=== PATIENT | male | born 1940 | race Hispanic/Latino ===

== ENCOUNTER 2017-12-20 15:02 | Inpatient (IN) | payer MEDICARE ==
[~2017-12-20] VITALS: Ht 157.5 cm; Wt 60.2 kg
[~2017-12-20 15:02] MED LIST: ALBUMIN (HUMAN) 25% 50 ML IV ONE; AMINOCAPROIC ACID 250 MG/ML 20 ML VIAL IV ONE; CALCIUM CHLORIDE 100 MG/ML 10 ML SYG IVP ONE; HEPARIN SODIUM 1000UNIT/ML 10ML VIAL IV ONE; MANNITOL 25% 50ML VIAL IV ONE; SODIUM BICARB 8.4% 50ML SYRINGE IVP ONE
[2017-12-20 15:05] VITALS: BP 147/74
[2017-12-20] MEDS ORDERED: IBUP100T53 PO (16:00)
[2017-12-20 16:30] VITALS: BP 121/65
[2017-12-20] MEDS ORDERED: CEFUROXIME 1.5GM+NS 100ML 100 ML IV SCH (17:00)
[2017-12-20] MEDS ORDERED: PHARMACY COMMUNICATION MISC SCH (17:15)
[2017-12-20 17:20] LABS: BASOPHILS % (AUTO) 0.5 % (0.0-5.0); HEMATOCRIT 26.5 % (42-54); MEAN CORPUSCULAR HGB CONC 35.5 g/dL (32.0-36.0); MONOCYTES % (AUTO) 7.8 % (3.0-13.0); NEUTROPHILS % (AUTO) 73.7 % (40.0-77.0); PLATELET COUNT (AUTO) 259 K/uL (130-400); RED BLOOD CELL COUNT(AUTO) 2.85 MIL/uL (4.50-6.20); WHITE BLOOD COUNT (AUTO) 11.5 K/uL (4.8-10.8)
[2017-12-20 17:32] LABS: INR 1.04 (0.85-1.15); PROTHROMBIN TIME 10.9 SEC (9.6-11.6)
[2017-12-20 17:33] LABS: ALBUMIN 2.9 g/dL (3.5-5.0); BILIRUBIN,TOTAL 0.3 mg/dL (0.2-1.0); CREATININE 1.5 mg/dL (0.5-1.5); POTASSIUM 4.7 mmol/L (3.5-5.1)
[2017-12-20] MEDS ORDERED: CEFUROXIME SODIUM 1.5 GM VIAL IVP SCH (18:00)
[2017-12-20] MEDS ORDERED: HEPARIN 25000 UNITS/250 ML D5W 250 ML IV PRN (19:30)
[2017-12-20 19:57] VITALS: BP 115/59
[2017-12-20 23:54] VITALS: BP 121/63
[2017-12-21] VITALS (16 sets, daily range): BP systolic 91–161; BP diastolic 40–64
[2017-12-21] MEDS ORDERED: IPRATROPIUM/ALBUTEROL SULFATE 3 ML SOLUTION IH PRN (02:30)
[2017-12-21] MEDS ORDERED: HYDRALAZINE HCL 20 MG/ML VIAL IV PRN (02:30)
[2017-12-21] MEDS ORDERED: ONDANSETRON HCL 4 MG/2 ML VIAL IVP PRN (02:30)
[2017-12-21] MEDS ORDERED: GLUCAGON 1MG KIT 1 MG ML IM PRN ×2 (02:30→13:30)
[2017-12-21] MEDS ORDERED: POTASSIUM CHLORIDE 10% ELIXIR 20 MEQ/15 ML UDCUP PO PRN (02:30)
[2017-12-21] MEDS ORDERED: POTASSIUM CHLORIDE 20 MEQ ERTAB PO PRN (02:30)
[2017-12-21] MEDS ORDERED: POTASSIUM CHLORIDE 20MEQ/100ML 100 ML IV PRN (02:30)
[2017-12-21] MEDS ORDERED: DEXTROSE 50%-WATER 50 ML DISP.SYRIN IV PRN ×2 (02:30→13:30)
[2017-12-21] MEDS ORDERED: ACETAMINOPHEN 325 MG TAB PO PRN ×2 (02:30→13:30)
[2017-12-21] MEDS ORDERED: LIDOCAINE HCL-MPF 1% 2ML VIAL IVP PRN (02:30)
[2017-12-21] MEDS ORDERED: LACTULOSE 20 GM/30 ML UDCUP PO PRN (02:30)
[2017-12-21 04:54] LABS: CREATININE 1.6 mg/dL (0.5-1.5); POTASSIUM 3.5 mmol/L (3.5-5.1)
[2017-12-21 04:57] LABS: HEMOGLOBIN A1C 5.7 % (4.0-6.0)
[2017-12-21 06:14] LABS: INR 1.01 (0.85-1.15); PARTIAL THROMBOPLASTIN TIME 30.4 SEC (26.3-35.5); PROTHROMBIN TIME 10.6 SEC (9.6-11.6)
[2017-12-21] MEDS: INSULIN HUMULIN R 100 UNIT/ML 3ML SQ SCH ×2 (07:30→11:30)
[2017-12-21] MEDS ORDERED: CEFUROXIME SODIUM 1.5 GM VIAL IVP ONE (08:00)
[2017-12-21] MEDS ORDERED: WATER FOR INJECTION,STERILE 20 ML VIAL IJ ONE (08:00)
[2017-12-21] MEDS ORDERED: SODIUM CHLORIDE 0.9% 1000ML 1,000 ML IV ONE (08:42)
[2017-12-21] MEDS ORDERED: FAMOTIDINE 20MG TAB 20 MG TAB PO SCH (09:00)
[2017-12-21] MEDS ORDERED: EPINEPHRINE 1 MG/ML 30ML VIAL IJ ONE (09:21)
[2017-12-21] MEDS ORDERED: NITROGLYCERIN 50 MG/D5% WATER 1 BOT ONE (09:27)
[2017-12-21] MEDS ORDERED: NOREPINEPHRINE BITARTRATE 1 MG/1 ML ML IV ONE ×2 (09:42→10:24)
[2017-12-21] MEDS ORDERED: PROPOFOL 10 MG/ML 20ML VIAL IV ONE (10:24)
[2017-12-21] MEDS ORDERED: HEPARIN SODIUM 1000UNIT/ML 10ML VIAL ONE (10:24)
[2017-12-21] MEDS ORDERED: ROCURONIUM BROMIDE 10MG/1ML 5ML VL ONE (10:24)
[2017-12-21] MEDS ORDERED: AMIODARONE HCL 900MG/18ML IV ONE (10:24)
[2017-12-21] MEDS ORDERED: PROTAMINE SULFATE 10 MG/ML 25ML VIAL IV ONE (10:24)
[2017-12-21] MEDS ORDERED: FENTANYL CITRATE PF 50 MCG/1 ML 20ML VIAL IJ ONE (10:24)
[2017-12-21] MEDS ORDERED: MIDAZOLAM HCL 1 MG/ML 5ML VIAL ONE (10:24)
[2017-12-21] MEDS ORDERED: ESMOLOL HCL 10 MG/ML 10 ML VIAL ONE (10:24)
[2017-12-21] MEDS ORDERED: LIDOCAINE PF 2% 5ML ABBOJECT ONE (10:24)
[2017-12-21] MEDS ORDERED: MILRINONE-D5W 20 MG/100 ML 100 ML IV ONE (10:24)
[2017-12-21] MEDS ORDERED: EPINEPHRINE 1 MG/ML AMPULE ONE (10:24)
[2017-12-21] MEDS ORDERED: AMINOCAPROIC ACID 250 MG/ML 20 ML VIAL IV ONE (10:24)
[2017-12-21] MEDS ORDERED: GLYCOPYRROLATE 0.2 MG/ML 5 ML VIAL ONE (10:24)
[2017-12-21] MEDS ORDERED: DELNIDO FORMULA 1 BAG IV ONE (10:32)
[2017-12-21] MEDS ORDERED: THROMBIN-JMI 5000 UNIT/VIAL TP ONE (10:49)
[2017-12-21 10:59] LABS: ABG BASE EXCESS -0.1 mmol/L (-2.0-3.0); ABG HCO3 24.5 mmol/L (21.0-28.0); ABG OXYGEN SATURATION 99.1 % (95.0-99.0); ABG PCO2 40 mmHg (35-48)
[2017-12-21] MEDS ORDERED: METHYLPREDNISOLONE SOD SUCC 1,000 MG/8 ML ML IV ONE (11:18)
[2017-12-21] MEDS: AMBU PUMP 1 EACH EACH MISC SCH ×2 (12:00→12:55)
[2017-12-21 12:12] LABS: ABG HCO3 22.5 mmol/L (21.0-28.0); ABG OXYGEN SATURATION 98.9 % (95.0-99.0); ABG PCO2 37 mmHg (35-48)
[2017-12-21 12:51] LABS: ABG HCO3 20.1 mmol/L (21.0-28.0); ABG OXYGEN SATURATION 98.8 % (95.0-99.0); ABG PCO2 33 mmHg (35-48)
[2017-12-21 13:16] LABS: ABG BASE EXCESS -4.6 mmol/L (-2.0-3.0); ABG HCO3 20.4 mmol/L (21.0-28.0); ABG OXYGEN SATURATION 98.8 % (95.0-99.0); ABG PCO2 38 mmHg (35-48)
[2017-12-21] MEDS ORDERED: SODIUM CHLORIDE 0.9% 500ML 500 ML IV SCH (13:28)
[2017-12-21] MEDS ORDERED: MORPHINE SULFATE 4 MG/1ML SYG IV PRN (13:30)
[2017-12-21] MEDS ORDERED: ALBUMIN (HUMAN) 5% 250 ML IV PRN (13:30)
[2017-12-21] MEDS ORDERED: NOREPINEPHRINE 4MG/NS 250ML 250 ML IV PRN (13:30)
[2017-12-21] MEDS ORDERED: SODIUM CHLORIDE 0.9% 250 ML IV PRN (13:30)
[2017-12-21] MEDS ORDERED: PROPOFOL 1000 MG/100 ML 100 ML IV PRN (13:30)
[2017-12-21] MEDS ORDERED: HYDROCODONE/ACETAMINOPHEN 5/325 MG TAB PO PRN ×2 (13:30)
[2017-12-21] MEDS ORDERED: MAGNESIUM 2GM PREMIX 50ML 50 ML IV PRN (13:30)
[2017-12-21] MEDS ORDERED: NITROGLYCERIN 50 MG/D5% WATER 250 BOT IV SCH (13:30)
[2017-12-21] MEDS ORDERED: AMINOCAPROIC ACID 15,000 MG in SODIUM CHLORIDE 0.9% 250 ML IV SCH (13:30)
[2017-12-21] MEDS ORDERED: SODIUM BICARB 8.4% 50ML SYRINGE IV PRN (13:30)
[2017-12-21] MEDS ORDERED: ACETAMINOPHEN 650 MG SUPPOSITORY RC PRN (13:30)
[2017-12-21] MEDS ORDERED: EPINEPHRINE 2 MG in SODIUM CHLORIDE 0.9% 250 ML IV PRN (13:30)
[2017-12-21] MEDS ORDERED: SODIUM CHLORIDE 0.9% 1000ML 1,000 ML IV SCH (13:30)
[2017-12-21] MEDS ORDERED: POTASSIUM PHOS 15 mMOL+NS250ML 250 ML IV PRN (13:30)
[2017-12-21] MEDS ORDERED: SODIUM CHLORIDE 0.9% 10 ML VIAL IVP PRN (13:30)
[2017-12-21] MEDS ORDERED: CALCIUM GLUCONATE 1 GM in SODIUM CHLORIDE 0.9% 50 ML IV PRN (13:30)
[2017-12-21] MEDS ORDERED: NICARDIPINE HCL 100 MG in SODIUM CHLORIDE 0.9% 100 ML IV PRN (13:30)
[2017-12-21] MEDS ORDERED: MORPHINE SULFATE 2 MG/ML 1ML SYG IV PRN (13:30)
[2017-12-21 13:48] LABS: ABG BASE EXCESS -6.9 mmol/L (-2.0-3.0); ABG HCO3 20.2 mmol/L (21.0-28.0); ABG OXYGEN SATURATION 98.7 % (95.0-99.0); ABG PCO2 48 mmHg (35-48)
[2017-12-21] MEDS ORDERED: ROPIVACAINE 0.2% 2MG/ML 100ML VIAL IJ ONE (14:00)
[2017-12-21] MEDS: INSULIN REGULAR, HUMAN 3ML 100 UNIT in SODIUM CHLORIDE 0.9% 99 ML IV SCH ×2 (14:08)
[2017-12-21] MEDS ORDERED: DESMOPRESSIN ACETATE 4 MCG/ML IJ ONE (14:57)
[2017-12-21 15:16] LABS: ABG BASE EXCESS -2.5 mmol/L (-2.0-3.0); ABG OXYGEN SATURATION 98.6 % (95.0-99.0); ABG PCO2 49 mmHg (35-48)
[2017-12-21] MEDS ORDERED: MORPHINE SULFATE 10 MG/ML 1ML SYG ONE (16:03)
[2017-12-21 17:02] LABS: ABG BASE EXCESS -2.9 mmol/L (-2.0-3.0); ABG OXYGEN SATURATION 98.7 % (95.0-99.0); ABG PCO2 45 mmHg (35-48)
[2017-12-21 17:07] LABS: HEMATOCRIT 28.4 % (42-54); MEAN CORPUSCULAR HEMOGLOBIN 29.6 pg (27.0-33.0); MEAN CORPUSCULAR HGB CONC 33.9 g/dL (32.0-36.0); MEAN CORPUSCULAR VOLUME 87.3 fL (79-99); PLATELET COUNT (AUTO) 144 K/uL (130-400); RED BLOOD CELL COUNT(AUTO) 3.26 MIL/uL (4.50-6.20); RED CELL DISTRIBUTION WIDTH 17.1 % (11.0-15.5)
[2017-12-21] MEDS ORDERED: SODIUM BICARB 50MEQ 50ML VIAL ONE ×2 (17:09→21:37)
[2017-12-21 17:11] LABS: WHITE BLOOD COUNT (AUTO) 30.2 K/uL (4.8-10.8)
[2017-12-21] MEDS: POTASSIUM CHLORIDE 20MEQ/100ML 100 ML IV PRN ×3 (17:11→21:30)
[2017-12-21 17:17] LABS: CREATININE 1.6 mg/dL (0.5-1.5); MAGNESIUM 2.1 mg/dL (1.80-2.40); PHOSPHORUS 2.9 mg/dL (2.5-4.9)
[2017-12-21 17:25] LABS: BAND NEUTROPHILS % (MANUAL) 2 % (0-2); LYMPHOCYTES % (MANUAL) 6 % (22-44); MONOCYTES % (MANUAL) 5 % (2-9); PLATELET MORPHOLOGY COMMENT ADEQUATE; SEGMENTED NEUTROPHILS % 87 % (40-70)
[2017-12-21] MEDS: CEFUROXIME SODIUM 1.5 GM VIAL IVP SCH (20:35)
[2017-12-21 21:05] LABS: ABG BASE EXCESS -2.3 mmol/L (-2.0-3.0); ABG OXYGEN SATURATION 97.6 % (95.0-99.0); ABG PCO2 41 mmHg (35-48)
[2017-12-21] MEDS ORDERED: CEFUROXIME 1.5GM+NS 100ML 100 ML IV SCH (21:30)
[2017-12-21] MEDS ORDERED: WATER FOR INJECTION,STERILE 20 ML VIAL IJ SCH (21:30)
[2017-12-21] MEDS: SODIUM BICARB 50MEQ 50ML VIAL IV PRN ×2 (22:06→23:47)
[2017-12-21 23:38] LABS: ABG BASE EXCESS -0.7 mmol/L (-2.0-3.0); ABG HCO3 24.1 mmol/L (21.0-28.0); ABG OXYGEN SATURATION 98.1 % (95.0-99.0); ABG PCO2 40 mmHg (35-48)
[2017-12-22] VITALS (24 sets, daily range): BP systolic 93–149; BP diastolic 32–60
[2017-12-22 00:53] LABS: ABG BASE EXCESS 0.7 mmol/L (-2.0-3.0); ABG HCO3 27.1 mmol/L (21.0-28.0); ABG OXYGEN SATURATION 96.5 % (95.0-99.0); ABG PCO2 52 mmHg (35-48)
[2017-12-22] MEDS: INSULIN REGULAR, HUMAN 3ML 100 UNIT in SODIUM CHLORIDE 0.9% 99 ML IV SCH ×4 (02:00→08:17)
[2017-12-22 03:55] LABS: HEMATOCRIT 24.8 % (42-54); MEAN CORPUSCULAR HEMOGLOBIN 30.9 pg (27.0-33.0); MEAN CORPUSCULAR HGB CONC 35.3 g/dL (32.0-36.0); MEAN CORPUSCULAR VOLUME 87.6 fL (79-99); PLATELET COUNT (AUTO) 117 K/uL (130-400); RED BLOOD CELL COUNT(AUTO) 2.83 MIL/uL (4.50-6.20); RED CELL DISTRIBUTION WIDTH 18.1 % (11.0-15.5); WHITE BLOOD COUNT (AUTO) 19.9 K/uL (4.8-10.8)
[2017-12-22 04:06] LABS: CREATININE 1.9 mg/dL (0.5-1.5); MAGNESIUM 1.9 mg/dL (1.80-2.40); PHOSPHORUS 4.7 mg/dL (2.5-4.9)
[2017-12-22 04:19] LABS: B-TYPE NATRIURETIC PEPTIDE 1950 pg/mL (0-100)
[2017-12-22 04:21] LABS: ABG BASE EXCESS -0.4 mmol/L (-2.0-3.0); ABG OXYGEN SATURATION 96.4 % (95.0-99.0); ABG PCO2 38 mmHg (35-48)
[2017-12-22] MEDS: ONDANSETRON HCL 4 MG/2 ML VIAL IV PRN ×2 (05:02→11:26)
[2017-12-22 05:07] LABS: ABG BASE EXCESS 0.7 mmol/L (-2.0-3.0); ABG HCO3 25.3 mmol/L (21.0-28.0); ABG OXYGEN SATURATION 97.5 % (95.0-99.0); ABG PCO2 40 mmHg (35-48)
[2017-12-22 06:14] LABS: ABG BASE EXCESS -2.1 mmol/L (-2.0-3.0); ABG HCO3 22.9 mmol/L (21.0-28.0); ABG OXYGEN SATURATION 98.1 % (95.0-99.0); ABG PCO2 40 mmHg (35-48)
[2017-12-22] MEDS: CEFUROXIME SODIUM 1.5 GM VIAL IVP SCH ×2 (08:42→21:11)
[2017-12-22] MEDS: PANTOPRAZOLE 40 MG/VIAL IV SCH (08:43)
[2017-12-22] MEDS: ALBUMIN (HUMAN) 5% 250 ML IV SCH ×2 (09:14→10:03)
[2017-12-22] MEDS ORDERED: EPINEPHRINE 8 MG in SODIUM CHLORIDE 0.9% 250 ML IV PRN (11:30)
[2017-12-22 13:39] LABS: CREATININE 1.9 mg/dL (0.5-1.5); MAGNESIUM 2.6 mg/dL (1.80-2.40); POTASSIUM 4.5 mmol/L (3.5-5.1)
[2017-12-22 13:44] LABS: APPEARANCE,URINE Cloudy (CLEAR); BILIRUBIN,URINE Negative (NEGATIVE); COLOR,URINE Yellow (YELLOW); GLUCOSE, URINE (UA) Negative (NEGATIVE); KETONES,URINE Negative (NEGATIVE); LEUKOCYTE ESTERASE ,URINE Large (NEGATIVE); NITRATE,URINE Negative (NEGATIVE); OCCULT BLOOD,URINE Large (NEGATIVE); PROTEIN,URINE Trace (NEGATIVE); UROBILINOGEN,URINE 0.2 mg/dL (0.2-1.0)
[2017-12-22 14:02] LABS: BACTERIA,URINE Many /HPF (None Seen); COARSE GRANULAR CASTS,URINE 0-2 /LPF (None Seen); WBC,URINE TNTC /HPF (0-1)
[2017-12-23] VITALS (24 sets, daily range): BP systolic 91–140; BP diastolic 32–66
[2017-12-23 04:28] LABS: ABG BASE EXCESS 5.5 mmol/L (-2.0-3.0); ABG OXYGEN SATURATION 97.9 % (95.0-99.0); ABG PCO2 52 mmHg (35-48)
[2017-12-23 04:39] LABS: LYMPHOCYTES % (AUTO) 3.8 % (21.0-51.0); MEAN CORPUSCULAR HEMOGLOBIN 31.9 pg (27.0-33.0); MEAN CORPUSCULAR HGB CONC 34.8 g/dL (32.0-36.0); MEAN CORPUSCULAR VOLUME 91.7 fL (79-99); MONOCYTES % (AUTO) 7.4 % (3.0-13.0); NEUTROPHILS % (AUTO) 88.8 % (40.0-77.0); PLATELET COUNT (AUTO) 55 K/uL (130-400); RED BLOOD CELL COUNT(AUTO) 2.18 MIL/uL (4.50-6.20); RED CELL DISTRIBUTION WIDTH 17.8 % (11.0-15.5); WHITE BLOOD COUNT (AUTO) 21.4 K/uL (4.8-10.8)
[2017-12-23 04:43] LABS: INR 1.04 (0.85-1.15); PROTHROMBIN TIME 10.9 SEC (9.6-11.6)
[2017-12-23 04:51] LABS: B-TYPE NATRIURETIC PEPTIDE 915 pg/mL (0-100)
[2017-12-23 05:10] LABS: CREATININE 1.5 mg/dL (0.5-1.5); MAGNESIUM 2.6 mg/dL (1.80-2.40); PHOSPHORUS 4.9 mg/dL (2.5-4.9); POTASSIUM 4.8 mmol/L (3.5-5.1)
[2017-12-23] MEDS ORDERED: LEVOFLOXACIN 500 MG/D5W 100 ML 100 ML IV SCH (09:00)
[2017-12-23] MEDS: ASPIRIN 81MG TAB.CHEW PO SCH (09:08)
[2017-12-23] MEDS: TICAGRELOR 90 MG TABLET PO SCH (09:08)
[2017-12-23] MEDS: PANTOPRAZOLE 40 MG/VIAL IV SCH (09:09)
[2017-12-23] MEDS: POTASSIUM CHLORIDE 10 MEQ/TAB.SA PO SCH (09:09)
[2017-12-23] MEDS: FUROSEMIDE 10 MG/ML 2ML VIAL IV SCH (09:32)
[2017-12-23] MEDS: 1/2 NORMAL SALINE 1,000 ML IV SCH ×2 (09:32→20:27)
[2017-12-23] MEDS ORDERED: METHYLPREDNISOLONE SOD SUCC 40MG/ML 1ML IVP SCH (10:00)
[2017-12-23] MEDS: INSULIN HUMULIN R 100 UNIT/ML 3ML SQ SCH ×3 (11:30→20:23)
[2017-12-23] MEDS: BUDESONIDE 0.5 MG/2 ML INH IH SCH (19:30)
[2017-12-23] MEDS: ATORVASTATIN CALCIUM 20 MG TABLET PO SCH (20:23)
[2017-12-24] VITALS (24 sets, daily range): BP systolic 95–163; BP diastolic 38–87
[2017-12-24 04:36] LABS: HEMATOCRIT 23.1 % (42-54); MEAN CORPUSCULAR HEMOGLOBIN 31.1 pg (27.0-33.0); MEAN CORPUSCULAR HGB CONC 34.8 g/dL (32.0-36.0); MEAN CORPUSCULAR VOLUME 89.4 fL (79-99); NUCLEATED RED BLOOD CELLS 0.3 % (0.0-0.19); PLATELET COUNT (AUTO) 54 K/uL (130-400); RED BLOOD CELL COUNT(AUTO) 2.58 MIL/uL (4.50-6.20); RED CELL DISTRIBUTION WIDTH 17.2 % (11.0-15.5); WHITE BLOOD COUNT (AUTO) 14.6 K/uL (4.8-10.8)
[2017-12-24 04:45] LABS: CREATININE 1.3 mg/dL (0.5-1.5); MAGNESIUM 2.4 mg/dL (1.80-2.40); PHOSPHORUS 3.2 mg/dL (2.5-4.9); POTASSIUM 4.5 mmol/L (3.5-5.1)
[2017-12-24] MEDS: BUDESONIDE 0.5 MG/2 ML INH IH SCH ×2 (06:39→16:26)
[2017-12-24] MEDS: INSULIN HUMULIN R 100 UNIT/ML 3ML SQ SCH ×4 (07:18→20:56)
[2017-12-24] MEDS ORDERED: LEVOFLOXACIN 500 MG TABLET PO SCH (09:00)
[2017-12-24] MEDS: FUROSEMIDE 10 MG/ML 2ML VIAL IV SCH (10:54)
[2017-12-24] MEDS: POTASSIUM CHLORIDE 10 MEQ/TAB.SA PO SCH (10:54)
[2017-12-24] MEDS: TICAGRELOR 90 MG TABLET PO SCH (10:54)
[2017-12-24] MEDS: ASPIRIN 81MG TAB.CHEW PO SCH (10:54)
[2017-12-24] MEDS ORDERED: DOBUTAMINE 250MG/D5 250ML 250 ML IV SCH (11:04)
[2017-12-24] MEDS: METHYLPREDNISOLONE SOD SUCC 40MG/ML 1ML IVP SCH ×2 (12:04→18:27)
[2017-12-24] MEDS: PANTOPRAZOLE 40 MG/VIAL IV SCH (12:24)
[2017-12-24] MEDS: IPRATROPIUM/ALBUTEROL SULFATE 3 ML SOLUTION IH PRN (16:26)
[2017-12-24] MEDS: AMOXICILLIN/POTASSIUM CLAV 875-125 TABLET PO SCH (20:56)
[2017-12-24] MEDS: ATORVASTATIN CALCIUM 20 MG TABLET PO SCH (20:56)
[2017-12-25] VITALS (25 sets, daily range): BP systolic 104–171; BP diastolic 46–77
[2017-12-25] MEDS: IPRATROPIUM/ALBUTEROL SULFATE 3 ML SOLUTION IH PRN (00:06)
[2017-12-25] MEDS: METHYLPREDNISOLONE SOD SUCC 40MG/ML 1ML IVP SCH ×3 (02:52→19:34)
[2017-12-25 05:09] LABS: HEMATOCRIT 25.5 % (42-54); MEAN CORPUSCULAR HEMOGLOBIN 30.4 pg (27.0-33.0); MEAN CORPUSCULAR HGB CONC 34.1 g/dL (32.0-36.0); MEAN CORPUSCULAR VOLUME 88.9 fL (79-99); PLATELET COUNT (AUTO) 65 K/uL (130-400); RED BLOOD CELL COUNT(AUTO) 2.87 MIL/uL (4.50-6.20); RED CELL DISTRIBUTION WIDTH 16.5 % (11.0-15.5); WHITE BLOOD COUNT (AUTO) 14.4 K/uL (4.8-10.8)
[2017-12-25 05:17] LABS: B-TYPE NATRIURETIC PEPTIDE 824 pg/mL (0-100)
[2017-12-25 05:18] LABS: INR 1.01 (0.85-1.15); PROTHROMBIN TIME 10.6 SEC (9.6-11.6)
[2017-12-25 05:24] LABS: CREATININE 1.1 mg/dL (0.5-1.5)
[2017-12-25] MEDS: INSULIN HUMULIN R 100 UNIT/ML 3ML SQ SCH ×4 (06:25→20:52)
[2017-12-25] MEDS: BUDESONIDE 0.5 MG/2 ML INH IH SCH ×2 (06:29→19:43)
[2017-12-25] MEDS: PANTOPRAZOLE SODIUM 40 MG TABLET.DR PO SCH (08:07)
[2017-12-25] MEDS: TICAGRELOR 90 MG TABLET PO SCH (08:22)
[2017-12-25] MEDS ORDERED: DOBUTAMINE 250MG/D5 250ML 250 ML IV SCH (09:15)
[2017-12-25] MEDS: FUROSEMIDE 10 MG/ML 2ML VIAL IV SCH (09:30)
[2017-12-25] MEDS: ASPIRIN 81MG TAB.CHEW PO SCH (16:41)
[2017-12-25] MEDS: AMOXICILLIN/POTASSIUM CLAV 875-125 TABLET PO SCH ×2 (16:42→20:56)
[2017-12-25] MEDS: POTASSIUM CHLORIDE 10 MEQ/TAB.SA PO SCH (16:47)
[2017-12-25] MEDS ORDERED: DOBUTAMINE HCL 250 MG in SODIUM CHLORIDE 0.9% 250 ML IV SCH (20:45)
[2017-12-25] MEDS: ATORVASTATIN CALCIUM 20 MG TABLET PO SCH (20:56)
[2017-12-26] VITALS (24 sets, daily range): BP systolic 91–157; BP diastolic 56–80
[2017-12-26] MEDS: METHYLPREDNISOLONE SOD SUCC 40MG/ML 1ML IVP SCH ×2 (03:20→21:05)
[2017-12-26 03:49] LABS: MEAN CORPUSCULAR HEMOGLOBIN 32.1 pg (27.0-33.0); MEAN CORPUSCULAR VOLUME 89.1 fL (79-99); PLATELET COUNT (AUTO) 90 K/uL (130-400); RED BLOOD CELL COUNT(AUTO) 3.03 MIL/uL (4.50-6.20); RED CELL DISTRIBUTION WIDTH 16.3 % (11.0-15.5); WHITE BLOOD COUNT (AUTO) 10.9 K/uL (4.8-10.8)
[2017-12-26 03:56] LABS: B-TYPE NATRIURETIC PEPTIDE 364 pg/mL (0-100)
[2017-12-26 04:22] LABS: CREATININE 1.2 mg/dL (0.5-1.5)
[2017-12-26] MEDS: INSULIN HUMULIN R 100 UNIT/ML 3ML SQ SCH ×4 (06:14→21:00)
[2017-12-26] MEDS: BUDESONIDE 0.5 MG/2 ML INH IH SCH ×2 (06:55→18:38)
[2017-12-26] MEDS: PANTOPRAZOLE SODIUM 40 MG TABLET.DR PO SCH (07:01)
[2017-12-26] MEDS: POTASSIUM CHLORIDE 10 MEQ/TAB.SA PO SCH (09:00)
[2017-12-26] MEDS: ASPIRIN 81MG TAB.CHEW PO SCH (09:23)
[2017-12-26] MEDS: AMOXICILLIN/POTASSIUM CLAV 875-125 TABLET PO SCH (09:23)
[2017-12-26] MEDS: TICAGRELOR 90 MG TABLET PO SCH ×2 (09:24→21:02)
[2017-12-26] MEDS: FUROSEMIDE 20 MG TABLET PO SCH ×2 (09:24→21:02)
[2017-12-26] MEDS ORDERED: MEROPENEM 500MG+NS 50ML 50 ML IV SCH (14:00)
[2017-12-26] MEDS: MEROPENEM 500 MG VIAL IVP SCH ×2 (14:34→21:11)
[2017-12-26] MEDS: ATORVASTATIN CALCIUM 20 MG TABLET PO SCH (21:02)
[2017-12-27] VITALS (21 sets, daily range): BP systolic 93–156; BP diastolic 54–72
[2017-12-27 03:59] LABS: HEMATOCRIT 30.2 % (42-54); MEAN CORPUSCULAR HEMOGLOBIN 31.2 pg (27.0-33.0); MEAN CORPUSCULAR HGB CONC 34.5 g/dL (32.0-36.0); MEAN CORPUSCULAR VOLUME 90.5 fL (79-99); NUCLEATED RED BLOOD CELLS 0.1 % (0.0-0.19); PLATELET COUNT (AUTO) 105 K/uL (130-400); RED BLOOD CELL COUNT(AUTO) 3.34 MIL/uL (4.50-6.20); RED CELL DISTRIBUTION WIDTH 16.5 % (11.0-15.5); WHITE BLOOD COUNT (AUTO) 12.1 K/uL (4.8-10.8)
[2017-12-27] MEDS: INSULIN HUMULIN R 100 UNIT/ML 3ML SQ SCH ×4 (05:46→21:00)
[2017-12-27] MEDS: BUDESONIDE 0.5 MG/2 ML INH IH SCH ×2 (06:47→19:03)
[2017-12-27] MEDS: MEROPENEM 500 MG VIAL IVP SCH ×3 (07:01→22:01)
[2017-12-27] MEDS: PANTOPRAZOLE SODIUM 40 MG TABLET.DR PO SCH (07:01)
[2017-12-27] MEDS: TICAGRELOR 90 MG TABLET PO SCH ×2 (08:24→20:39)
[2017-12-27] MEDS: FUROSEMIDE 20 MG TABLET PO SCH ×2 (08:24→20:39)
[2017-12-27] MEDS: METHYLPREDNISOLONE SOD SUCC 40MG/ML 1ML IVP SCH ×2 (08:25→20:39)
[2017-12-27] MEDS: ASPIRIN 81MG TAB.CHEW PO SCH (08:25)
[2017-12-27] MEDS: ATORVASTATIN CALCIUM 20 MG TABLET PO SCH (20:39)
[2017-12-28 03:34] VITALS: BP 116/62
[2017-12-28 04:23] LABS: HEMATOCRIT 28.6 % (42-54); MEAN CORPUSCULAR HEMOGLOBIN 32.4 pg (27.0-33.0); MEAN CORPUSCULAR HGB CONC 35.9 g/dL (32.0-36.0); MEAN CORPUSCULAR VOLUME 90.3 fL (79-99); PLATELET COUNT (AUTO) 129 K/uL (130-400); RED BLOOD CELL COUNT(AUTO) 3.16 MIL/uL (4.50-6.20); RED CELL DISTRIBUTION WIDTH 16.3 % (11.0-15.5); WHITE BLOOD COUNT (AUTO) 14.3 K/uL (4.8-10.8)
[2017-12-28 04:31] LABS: BAND NEUTROPHILS % (MANUAL) 9 % (0-2); LYMPHOCYTES % (MANUAL) 8 % (22-44); MAN.DIFF COMMENT-IMPRESSION MANUAL DIFFERENTIAL; MONOCYTES % (MANUAL) 2 % (2-9); PLATELET MORPHOLOGY COMMENT SLIGHTLY DECREASED; SEGMENTED NEUTROPHILS % 81 % (40-70)
[2017-12-28 04:33] LABS: CREATININE 1.4 mg/dL (0.5-1.5); POTASSIUM 3.7 mmol/L (3.5-5.1)
[2017-12-28] MEDS: MEROPENEM 500 MG VIAL IVP SCH ×3 (05:46→22:33)
[2017-12-28] MEDS: PANTOPRAZOLE SODIUM 40 MG TABLET.DR PO SCH (06:25)
[2017-12-28] MEDS: INSULIN HUMULIN R 100 UNIT/ML 3ML SQ SCH ×4 (06:26→22:47)
[2017-12-28] MEDS: BUDESONIDE 0.5 MG/2 ML INH IH SCH ×2 (06:31→20:12)
[2017-12-28 08:03] VITALS: BP 120/63
[2017-12-28] MEDS: ZINC OXIDE OINT 30GM TUBE TP SCH (08:19)
[2017-12-28] MEDS: FUROSEMIDE 20 MG TABLET PO SCH ×2 (08:20→22:32)
[2017-12-28] MEDS: METHYLPREDNISOLONE SOD SUCC 40MG/ML 1ML IVP SCH ×2 (08:20→22:33)
[2017-12-28] MEDS: TICAGRELOR 90 MG TABLET PO SCH ×2 (08:20→22:32)
[2017-12-28] MEDS: ASPIRIN 81MG TAB.CHEW PO SCH (08:20)
[2017-12-28] MEDS: POTASSIUM CHLORIDE 10% ELIXIR 20 MEQ/15 ML UDCUP PO SCH (09:50)
[2017-12-28 10:00] VITALS: BP 121/58
[2017-12-28 16:11] VITALS: BP 126/66
[2017-12-28 19:41] VITALS: BP 138/96
[2017-12-28] MEDS: ATORVASTATIN CALCIUM 20 MG TABLET PO SCH (22:32)
[2017-12-28 23:25] VITALS: BP 128/54
[2017-12-29 03:14] VITALS: BP 115/63
[2017-12-29 04:48] LABS: HEMATOCRIT 29.9 % (42-54); MEAN CORPUSCULAR HEMOGLOBIN 30.9 pg (27.0-33.0); MEAN CORPUSCULAR HGB CONC 34.1 g/dL (32.0-36.0); MEAN CORPUSCULAR VOLUME 90.6 fL (79-99); PLATELET COUNT (AUTO) 171 K/uL (130-400); RED CELL DISTRIBUTION WIDTH 16.7 % (11.0-15.5); WHITE BLOOD COUNT (AUTO) 18.9 K/uL (4.8-10.8)
[2017-12-29 05:14] LABS: CREATININE 1.1 mg/dL (0.5-1.5); POTASSIUM 4.2 mmol/L (3.5-5.1)
[2017-12-29] MEDS: BUDESONIDE 0.5 MG/2 ML INH IH SCH (06:36)
[2017-12-29] MEDS: INSULIN HUMULIN R 100 UNIT/ML 3ML SQ SCH ×3 (06:57→16:30)
[2017-12-29] MEDS: MEROPENEM 500 MG VIAL IVP SCH ×2 (06:57→13:45)
[2017-12-29] MEDS: PANTOPRAZOLE SODIUM 40 MG TABLET.DR PO SCH (06:58)
[2017-12-29 07:00] VITALS: BP 112/63
[2017-12-29] MEDS ORDERED: POTASSIUM CHLORIDE 10% ELIXIR 20 MEQ/15 ML UDCUP PO ONE (07:51)
[2017-12-29] MEDS: FUROSEMIDE 20 MG TABLET PO SCH (08:23)
[2017-12-29] MEDS: ASPIRIN 81MG TAB.CHEW PO SCH (08:23)
[2017-12-29] MEDS: METHYLPREDNISOLONE SOD SUCC 40MG/ML 1ML IVP SCH (08:23)
[2017-12-29] MEDS: TICAGRELOR 90 MG TABLET PO SCH (08:23)
[2017-12-29] MEDS: POTASSIUM CHLORIDE 10% ELIXIR 20 MEQ/15 ML UDCUP PO SCH (08:31)
[2017-12-29] MEDS: ZINC OXIDE OINT 30GM TUBE TP SCH (08:31)
[2017-12-29 11:00] VITALS: BP 112/59
[2017-12-29 16:00] VITALS: BP 120/64
[2017-12-30] MEDS ORDERED: METHYLPREDNISOLONE SOD SUCC 40MG/ML 1ML IVP SCH (09:00)
== END 2017-12-29 17:50 | DRG 219 ==
LOC: SUH 15:02 → 2AH 15:07 → 2CV 12-21 08:38 → EDSTATUS 12-21 09:30 → EDUNIT# 12-21 09:30 → 2CV 12-21 09:45 → 2CH 12-23 16:41 → 2BH 12-25 16:20 → 2DH 12-28 10:48
PROVIDERS: ADMIT Internal Medicine; ATTEND Internal Medicine
PROC: 5A12012 Performance of Cardiac Output, Single, Manual (ICD-10-PCS; 2017-12-20)
PROC: 30233N1 Transfusion of Nonautologous Red Blood Cells into Peripheral Vein, Percutaneous Approach (ICD-10-PCS; 2017-12-21)
PROC: 30233K1 Transfusion of Nonautologous Frozen Plasma into Peripheral Vein, Percutaneous Approach (ICD-10-PCS; 2017-12-21)
PROC: 02RF0JZ Replacement of Aortic Valve with Synthetic Substitute, Open Approach (ICD-10-PCS; principal; 2017-12-21 10:23)
PROC: 5A1221Z Performance of Cardiac Output, Continuous (ICD-10-PCS; 2017-12-21 10:23)
PROC: B24BZZ4 Ultrasonography of Heart with Aorta, Transesophageal (ICD-10-PCS; 2017-12-21 10:23)
PROC: 30233L1 Transfusion of Nonautologous Fresh Plasma into Peripheral Vein, Percutaneous Approach (ICD-10-PCS; 2017-12-21 10:23)
PROC: 30233N1 Transfusion of Nonautologous Red Blood Cells into Peripheral Vein, Percutaneous Approach (ICD-10-PCS; 2017-12-23)
DX: I21.4 Non-ST elevation (NSTEMI) myocardial infarction (principal); G93.40 Encephalopathy, unspecified; I46.9 Cardiac arrest, cause unspecified; I13.2 Hypertensive heart and chronic kidney disease with heart failure and with stage 5 chronic kidney disease, or end stage renal disease; I44.2 Atrioventricular block, complete; N17.9 Acute kidney failure, unspecified; E87.2 Acidosis; D69.6 Thrombocytopenia, unspecified; N18.6 End stage renal disease; J44.1 Chronic obstructive pulmonary disease with (acute) exacerbation; I47.1 Supraventricular tachycardia; D62 Acute posthemorrhagic anemia; N39.0 Urinary tract infection, site not specified; I35.0 Nonrheumatic aortic (valve) stenosis; I95.9 Hypotension, unspecified; I25.10 Atherosclerotic heart disease of native coronary artery without angina pectoris; R31.0 Gross hematuria; Z16.24 Resistance to multiple antibiotics; F17.200 Nicotine dependence, unspecified, uncomplicated; Z16.12 Extended spectrum beta lactamase (ESBL) resistance; R31.9 Hematuria, unspecified; E11.9 Type 2 diabetes mellitus without complications; N40.0 Benign prostatic hyperplasia without lower urinary tract symptoms; I50.9 Heart failure, unspecified; E78.5 Hyperlipidemia, unspecified; D63.8 Anemia in other chronic diseases classified elsewhere; I25.2 Old myocardial infarction; Z95.5 Presence of coronary angioplasty implant and graft; Z79.82 Long term (current) use of aspirin; Z95.0 Presence of cardiac pacemaker; Z95.1 Presence of aortocoronary bypass graft; Z28.21 Immunization not carried out because of patient refusal
CPT/HCPCS: 36415; 36430; 36600; 71045; 74176; 76998; 80048; 80053; 80061; 81001; 82330; 82435; 82803; 82947; 82948; 83036; 83605; 83735; 83880; 84100; 84132; 84295; 85007; 85018; 85025; 85027; 85347; 85610; 85730; 86156; 86850; 86870; 86900; 86901; 86922; 86927; 87040; 87088; 87186; 88305; 88311; 93005; 93306; 93318; 93880; 93925; 93970; 94002; 94003; 94010; 94150; 94640; 94664; 97039; A4218; A7048; C9113; J0171; J0282; J0697; J1250; J1644; J1815; J1940; J1956; J2001; J2150; J2185; J2250; J2260; J2270; J2405; J2597; J2704; J2720; J2795; J2920; J2930; J3010; J3475; J3480; J3490; J7030; J7040; J7070; P9012; P9016; P9017; P9034; P9045; P9047